=== PATIENT | female | born 1990 | race Caucasian/White ===

== ENCOUNTER 2018-06-18 01:00 | Inpatient (IN) | payer BC ==
[~2018-06-18] VITALS: Ht 157.5 cm; Wt 160.1 kg
[2018-06-18 02:40] VITALS: BP 121/56; PULSE 90; RESP 18; Ht 157.5 cm; Wt 160.1 kg
[2018-06-18] MEDS ORDERED: ONDANSETRON 4 MG INJ IV PRN (03:00)
--- NOTE | 2018-06-18 03:45 | TRIAGE ---
OB Triage Datetime Report Generated by CPN: 06/18/2018 03:45 Datetime: 06/18/2018 02:57 Time of Arrival: 06/18/2018 00:55 EGA: 30.3 Arrived By: Wheelchair Arrived From: Emergency Dept Chief Complaint: RUQ pain Movement: Present Contractions: Denies/Absent Rupture of Membranes: Denies Vaginal Bleeding: None Vaginal Discharge: Denies Recent Sexual Intercouse: Denies Abdominal Trauma: Not Applicable Patient Complaints: Nausea; Vomiting; Other Time Provider Notified: 06/18/2018 02:25 Provider Notified: YASHARPOUR Initial Plan: VS, EFM Datetime: 06/18/2018 02:04 Stage of : OB Triage Labor Evaluation Monitor Mode: External Resting Tone [place]: Relaxed Contraction Comments: none Heart Rate FHR Baseline Rate: 130 Monitor Mode: External US Variability: Moderate 6-25 bpm Accelerations: 15X15 Decelerations: None Category: Category I Pain Assessment Pain Scale: 8 Pain Presence: Intermittent Pain Type: Ache Pain Location: Abdomen Pain Relief Measures: Comfort Measures Datetime: 06/18/2018 01:30 Stage of : OB Triage Assessment Type: Triage Maternal Assessment Level of Consciousness: Fully Conscious DTR's/Clonus: DTRs 2+; No Clonus Headache: Denies Blurred Vision: No Respiratory Effort: Unlabored; Regular Rhythm; Equal Expansion Breath Sounds, Left: Clear and Equal Breath Sounds, Right: Clear and Equal Nausea/Vomiting: Denies RUQ Epigastric Pain: Denies Lower Extremities Edema: None Degree: None Upper Extremities Edema: None Degree: None Facial Edema: None Temperature Route: Oral Fall Risk Assessment History of Falling: (0) No Secondary Diagnosis: (0) No Ambulatory Aid: (0) Bedrest/Nurse Assist IV Therapy: (0) No Gait: (0) Normal/Bedrest/Immobile Mental Status: (0) Oriented to Own Ability Fall Score: 0 Fall Risk Score Definition: No Risk: No action required Pain Assessment Pain Scale: 8 Pain Presence: Constant Pain Type: Ache Pain Location: Abdomen Pain Relief Measures: Comfort Measures
[2018-06-18] MEDS: LACTATED RINGER'S 1,000 ML IV SCH ×2 (04:19→11:44)
[2018-06-18] MEDS ORDERED: morphine 2 MG INJ ONE (05:00)
[2018-06-18] MEDS ORDERED: morphine 4 MG/ML VIAL IV PRN (05:00)
--- NOTE | 2018-06-18 09:18 | HP ---
Date/Time of Note Date/Time of Note DATE: 06/18/18 TIME: 09:13 OB - History Hx of Present Free Text/Dictation 27 YO with morbid obesity (BMI 65) with IUP at 30.3 weeks. patient with known long h/o gall stones, reported to L&D due to RUQ pain and emesis. sono revealed gall stones and labs are normal. she feels better now and she desires to go home. she is aware of the low fat diet, but she is not compliant. she reports good movements, she denies LOF per vagina or vaginal bleeding or UCs. Care: Good Care Ultrasounds: Normal mid trimester US Obstetrical Complications: Other (morbid obesity (BMI 65)) Medical Complications: Other (morbid obesity (BMI 65)) Past Family/Social History * Past Medical, Surgical, Family and Obstetric Histories reviewed from chart. OB Admission Exam Vital Signs Vital Signs Vital Signs Date Temp Pulse Resp B/P (MAP) Pulse Ox O2 O2 Flow FiO2 Time Delivery Rate 06/18/18 98.6 90 18 121/56 Room Air 02:40 (77) Physical Exam HEENT: WNL Heart: Rhythm Normal Lungs: Clear, Equal Abdomen: Abnormal (morbid obesity (BMI 65), soft, gravid, not tender) Extremities: Normal Reflexes: Normal Last 72 hours Lab Results CBC & BMP 06/18/18 03:59 Liver Function Test 06/18/18 03:59 Alanine Aminotransferase (ALT/SGPT) 10 L Albumin 3.8 Alkaline Phosphatase 107 Aspartate Amino Transf (AST/SGOT) 14 L Direct Bilirubin 0.00 Total Protein 7.5 OB Assessment/Plan Other Assessment: IUP 30.3 weeks morbid obesity (BMI 65) Gall stones. she feels better now and desires to go home Plan: Other (discharge home with precautions) URBANO MELLO MD Jun 18, 2018 09:18
[2018-06-18] MEDS ORDERED: HYDROCODONE/APAP (10/325) TAB PO ONE (10:00)
== END 2018-06-18 11:58 | disposition home or self-care (01) | DRG 832 ==
LOC: OBT 01:00 → L-D 01:10 → OBT 02:25 → L-D 02:25
PROVIDERS: ADMIT Specialist; ATTEND Specialist
DX: O99.613 Diseases of the digestive system complicating pregnancy, third trimester (principal); Z68.44 Body mass index [BMI] 60.0-69.9, adult; Z3A.30 30 weeks gestation of pregnancy; K80.20 Calculus of gallbladder without cholecystitis without obstruction; O99.213 Obesity complicating pregnancy, third trimester; E66.01 Morbid (severe) obesity due to excess calories
CPT/HCPCS: 76705; 76817; 76818; 80076; 81001; 85025; G0463; J2270; J7120

== ENCOUNTER 2018-06-18 22:23 | Outpatient (CLI) | payer BC ==
[~2018-06-18] VITALS: Ht 157.5 cm; Wt 160.2 kg
[2018-06-19] MEDS ORDERED: morphine 4 MG/ML VIAL IV PRN
[2018-06-19] MEDS ORDERED: ONDANSETRON 4 MG INJ IV PRN
[2018-06-19 00:02] VITALS: BP 141/67; PULSE 96; RESP 18
[2018-06-19] MEDS ORDERED: morphine 10 MG INJ ONE (01:10)
[2018-06-19] MEDS ORDERED: LACTATED RINGER'S 1,000 ML IV ONE (01:30)
[2018-06-19] MEDS ORDERED: LACTATED RINGER'S 1,000 ML IV SCH (02:30)
--- NOTE | 2018-06-19 12:30 | PN ---
Triage Information Date/Time 06/19/1804/27/1218 Reason for visit: Abd/pelvic pain Weeks of Gestation 30w4d /Para Diabetes: none Hypertention: none Additional information known to have gall stones hospitalized for abdominal pain and discharged on 06/17/18 postprandial pain on RUQ with x2 vomiting Objective Vital Signs Date Temp Pulse Resp B/P (MAP) Pulse Ox O2 O2 Flow FiO2 Time Delivery Rate 06/19/18 98.0 96 18 141/67 Room Air 00:02 (91) Heart Rate: 140's Heart Rate Comments CAT I tracing Contractions: None Results/Medications Result Diagram: 06/19/18 0109 Results 24 hrs Laboratory Tests Test 06/19/18 01:09 White Blood Count 12.6 H Red Blood Count 3.53 L Hemoglobin 9.2 L Hematocrit 28.6 L Mean Corpuscular Volume 81.0 L Mean Corpuscular Hemoglobin 26.1 L Mean Corpuscular Hemoglobin Concent 32.2 Red Cell Distribution Width 14.6 H Platelet Count 339 Mean Platelet Volume 10.2 Immature Granulocytes % 0.600 H Neutrophils % 71.3 Lymphocytes % 21.8 Monocytes % 5.8 Eosinophils % 0.3 Basophils % 0.2 Nucleated Red Blood Cells % 0.0 Immature Granulocytes # 0.070 H Neutrophils # 9.0 H Lymphocytes # 2.8 Monocytes # 0.7 Eosinophils # 0.0 Basophils # 0.0 Nucleated Red Blood Cells # 0.0 Medications MS 4mg zofran 4mg Imaging Results BPP 8/ JENNIFER 12.11 Disposition: Discharge Assessment/Plan A IUP 30w4d Abdominal pain 2to cholelithiasis pain resolved P discharge home low fat diet RTH prn MONY KENNY MD Jun 19, 2018 12:29
== END 2018-06-19 04:30 | disposition home or self-care (01) ==
LOC: OBT 22:23 → L-D 22:24 → OBT 06-19 04:30
PROVIDERS: ATTEND Specialist
DX: O26.893 Other specified pregnancy related conditions, third trimester (principal); R10.9 Unspecified abdominal pain; O99.613 Diseases of the digestive system complicating pregnancy, third trimester; K80.20 Calculus of gallbladder without cholecystitis without obstruction; Z3A.30 30 weeks gestation of pregnancy
CPT/HCPCS: 76818; 85025; 96360; 96361; 96374; 96375; J2270; J2405; J7120; Z7500; G0463

== ENCOUNTER 2018-06-21 23:15 | Inpatient (IN) | payer BC ==
[~2018-06-21] VITALS: Ht 157.5 cm; Wt 157.5 kg
[2018-06-21] MEDS ORDERED: PREN-19 PO (23:48)
[2018-06-21 23:49] VITALS: BP 137/79; PULSE 90; RESP 18
[2018-06-22] MEDS ORDERED: morphine 4 MG/ML VIAL IV PRN ×2 (01:00→15:30)
[2018-06-22] MEDS ORDERED: AL HYDROX/MG HYDROX/SIMETH 30 ML CUP PO PRN (01:00)
[2018-06-22] MEDS ORDERED: LACTATED RINGER'S 1,000 ML IV ONE (01:00)
[2018-06-22] MEDS ORDERED: ACETAMINOPHEN 325 MG TAB PO PRN (01:00)
[2018-06-22] MEDS ORDERED: ONDANSETRON 4 MG INJ IV PRN (01:00)
--- NOTE | 2018-06-22 01:56 | TRIAGE ---
OB Triage Datetime Report Generated by CPN: 06/22/2018 01:55 Datetime: 06/22/2018 00:50 Stage of : OB Triage Monitor Mode: External Quality: Mild Pattern: Normal: <= 5 Contractions in 10 Minutes Resting Tone [place]: Relaxed Datetime: 06/21/2018 23:58 Labor Evaluation Frequency: 2-6 Monitor Mode: External Duration (sec)2399: 20-40 Quality: Mild Pattern: Normal: <= 5 Contractions in 10 Minutes Resting Tone [place]: Relaxed Contraction Comments: Pt denies feeling ucs Datetime: 06/21/2018 23:32 Stage of : OB Triage Maternal Assessment Level of Consciousness: Fully Conscious Headache: Denies Blurred Vision: No Respiratory Effort: Unlabored Nausea/Vomiting: Present Facial Edema: None Monitor Mode: External Resting Tone [place]: Relaxed Heart Rate FHR Baseline Rate: 150 Monitor Mode: External US Comments: Baby very difficult to monitor d/t pt BMI 63.5 and pannus Pain Assessment Pain Scale: 8 Pain Presence: Constant Pain Type: Stabbing; Pressure Pain Location: Abdomen Datetime: 06/21/2018 23:25 Time of Arrival: 06/21/2018 23:12 EGA: 31.0 Arrived By: Wheelchair Arrived From: Home Chief Complaint: L1 w/ hx gallstones c/o N/V x1 after eating and gallstone pain beg 1700. Movement: Present Contractions: Denies/Absent Rupture of Membranes: Denies Vaginal Bleeding: None Vaginal Discharge: Denies Recent Sexual Intercouse: Denies Abdominal Trauma: Not Applicable Patient Complaints: Nausea; Vomiting; Other Time Provider Notified: 06/22/2018 00:50 Provider Notified: Dr Rodriguez Initial Plan: EFM,UA Datetime: 06/19/2018 01:15 Stage of : OB Triage Pain Assessment Pain Scale: 10 Pain Presence: Constant Pain Type: Sharp; Stabbing; Pressure Pain Location: Abdomen Datetime: 06/19/2018 00:51 Comments: Unablt to monitor baby d/t pt BMI and pain Datetime: 06/18/2018 23:30 Stage of : OB Triage Monitor Mode: External Resting Tone [place]: Relaxed Datetime: 06/18/2018 23:00 Time of Arrival: 06/18/2018 22:17 EGA: 30.3 Arrived By: Wheelchair Arrived From: Home Chief Complaint: to unit by w/c c/o n/v and severe RUQ pain and states she knows it is her gal lstones as it started 2 hrs after eating Movement: Present Contractions: Denies/Absent Rupture of Membranes: Denies Vaginal Bleeding: None Vaginal Discharge: Denies Recent Sexual Intercouse: Denies Abdominal Trauma: Not Applicable Patient Complaints: Nausea; Vomiting; Other Time Provider Notified: 06/18/2018 23:40 Provider Notified: Dr Puckett Datetime: 06/18/2018 22:43 Stage of : OB Triage Maternal Assessment Level of Consciousness: Fully Conscious Headache: Denies Blurred Vision: No Respiratory Effort: Unlabored Nausea/Vomiting: Present RUQ Epigastric Pain: Denies Facial Edema: None Monitor Mode: External Resting Tone [place]: Relaxed Heart Rate FHR Baseline Rate: 150 Monitor Mode: External US Pain Assessment Pain Scale: 10 Pain Presence: Constant Pain Type: Sharp; Stabbing; Pressure Pain Location: Abdomen Datetime: 06/18/2018 11:43 Labor Evaluation Frequency: 0 Monitor Mode: Palpation Resting Tone [place]: Relaxed Heart Rate FHR Baseline Rate: 140 Monitor Mode: External US FHR Baseline Changes: No Baseline Change Variability: Moderate 6-25 bpm Accelerations: 10X10 Decelerations: None Category: Category I Pain Assessment Pain Scale: 0 Pain Presence: None/Denies Datetime: 06/18/2018 11:18 Pain Assessment Pain Scale: 6 Pain Presence: Intermittent Pain Type: Dull Pain Location: Abdomen Pain Relief Measures: Comfort Measures Datetime: 06/18/2018 11:01 Labor Evaluation Frequency: 0 Monitor Mode: Palpation Resting Tone [place]: Relaxed Heart Rate FHR Baseline Rate: 140 Monitor Mode: External US FHR Baseline Changes: No Baseline Change Decelerations: None Category: Category I Datetime: 06/18/2018 10:54 Pain Assessment Pain Scale: 0 Pain Presence: None/Denies Pain Relief Measures: Comfort Measures Datetime: 06/18/2018 10:13 Labor Evaluation Frequency: 0 Monitor Mode: External Contraction Comments: DENIES FEELING ANY UC'S Heart Rate FHR Baseline Rate: 140 Monitor Mode: External US FHR Baseline Changes: No Baseline Change Variability: Moderate 6-25 bpm Accelerations: 15X15 Decelerations: None Category: Category I Pain Presence: None/Denies Datetime: 06/18/2018 07:33 Assessment Type: Ongoing Assessment Maternal Assessment Level of Consciousness: Fully Conscious DTR's/Clonus: DTRs 2+; No Clonus Headache: Denies Blurred Vision: No Respiratory Effort: Unlabored; Regular Rhythm; Equal Expansion Breath Sounds, Left: Clear and Equal Breath Sounds, Right: Clear and Equal Nausea/Vomiting: Denies RUQ Epigastric Pain: Denies Facial Edema: None Temperature Route: Oral Fall Risk Assessment History of Falling: (0) No Secondary Diagnosis: (0) No Ambulatory Aid: (0) Bedrest/Nurse Assist IV Therapy: (0) No Gait: (0) Normal/Bedrest/Immobile Mental Status: (0) Oriented to Own Ability Fall Score: 0 Fall Risk Score Definition: No Risk: No action required Datetime: 06/18/2018 03:20 Stage of : Antepartum Assessment Type: Ongoing Assessment Maternal Assessment Level of Consciousness: Fully Conscious DTR's/Clonus: DTRs 2+; No Clonus Headache: Denies Blurred Vision: No Respiratory Effort: Unlabored; Regular Rhythm; Equal Expansion Breath Sounds, Left: Clear and Equal Breath Sounds, Right: Clear and Equal Nausea/Vomiting: Denies RUQ Epigastric Pain: Denies Lower Extremities Edema: None Degree: None Upper Extremities Edema: None Degree: None Facial Edema: None Temperature Route: Oral Fall Risk Assessment History of Falling: (0) No Secondary Diagnosis: (0) No Ambulatory Aid: (0) Bedrest/Nurse Assist IV Therapy: (0) No Gait: (0) Normal/Bedrest/Immobile Mental Status: (0) Oriented to Own Ability Fall Score: 0 Fall Risk Score Definition: No Risk: No action required Pain Assessment Pain Scale: 8 Pain Presence: Intermittent Pain Type: Sharp Pain Location: Right Flank Pain Goal: 3 Pain Relief Measures: Comfort Measures Datetime: 06/18/2018 02:57 EGA: 30.3 Datetime: 06/18/2018 01:30 Fall Score: 0 Fall Risk Score Definition: No Risk: No action required
[2018-06-22] MEDS ORDERED: morphine 10 MG INJ ONE (02:27)
--- NOTE | 2018-06-22 03:22 | HP ---
Date/Time of Note Date/Time of Note DATE: 06/22/18 TIME: 03:17 OB - History Hx of Present Free Text/Dictation Patient is a 27-year-old morbidly obese with BMI of 63.5 4 para 1 at 31 weeks of gestation with estimated date of delivery August 24, 2018 presents with chief complaint of abdominal pain and vomiting Patient is known to have gallstones. Initially diagnosed in 2014 She reports that she is unable to hold any food or fluids down She reports positive movement, denies any vaginal bleeding or leaking fluid She has occasional uterine contractions Past obstetrical history significant for x1 Estimated Due Date: Aug 24, 2018 : 4 Para: 1 Medical Complications: Other (Gallstones) Past Family/Social History * Past Medical, Surgical, Family and Obstetric Histories reviewed from chart. OB Admission Exam Vital Signs Vital Signs Vital Signs Date Temp Pulse Resp B/P (MAP) Pulse Ox O2 O2 Flow FiO2 Time Delivery Rate 06/21/18 97.9 90 18 137/79 Room Air 23:49 (98) Physical Exam HEENT: WNL Heart: Rhythm Normal Lungs: Clear, Equal Abdomen: WNL Extremities: Normal Reflexes: Normal Cervical Dilatation: None Membranes: Intact Heart Rate: 140's Accelerations: Accelerations Present Decelerations: No Decelerations Varibility: Moderate Contractions on Admission: 6-10 Minutes Apart Intensity: Mild Last 72 hourBlood Glucose PROCEDURE: Gallbladder ultrasound CLINICAL INDICATION: Abdominal pain. COMPARISON: Ultrasound 06/18/2018. TECHNIQUE: Multiple transverse and longitudinal sommer-scale images of the abdomen were obtained, supplemented with color, power, and spectral Doppler imaging with appropriate. FINDINGS: No sonographic Martinez's sign. No distension. No wall thickening. No pericholecystic fluid. Cholelithiasis Common bile duct: 4.0 mm. Visualized liver: Normal. Liver: Hepatomegaly (25 cm). Heterogeneous echogenicity on the basis of hepatic steatosis Pancreas: Unremarkable. Right Kidney: No hydronephrosis. IMPRESSION: 1. Cholelithiasis without wall thickening or surrounding fluid. 2. Hepatomegaly with hepatic steatosis. RPTAT: HRSR Roberty Redlich, Physician Date Time Electronically viewed and signed by Physician Jemma on 06/22/2018 02:39 RR/ CC: EDGAR ZAMORANO MD [id number] Ordering MD: EDGAR ZAMORANO MD Location: L-D Room/Bed: [facility] 2-A PROCEDURE: US OB. CLINICAL INDICATION: Pain. TECHNIQUE: Multiple sonographic images of the uterus were obtained. The images were reviewed on a PACS workstation. COMPARISON: US ABDOMEN 06/19/2018 FINDINGS: There is a single live intrauterine gestation. heart rate is 130 beats per minute. Measurements were made in order to determine age. The results are as follows: BPD = 8.07 cm. HC = 29.90 cm. AC = 28.76 cm. FL = 5.93 cm. Estimated weight is 1929 +/- 289 grams. LMP growth percentile is 78.8 %. Menstrual age by ultrasound dates is 32 weeks 2 days. The estimated date of delivery is 08/15/2018. Position is cephalic and placenta is posterior grade 1. There is no evidence for an abruption or placenta previa. IMPRESSION: 1. Single live intrauterine gestation of 32 weeks 2-day menstrual age by ultrasound dates. 2. The estimated date of delivery is 08/15/2018. RPTAT: HRSR Physician Jemma Date Time Electronically viewed and signed by Physician Jemma on 06/22/2018 02:46 RR/ CC: EDGAR ZAMORANO MD [id number] PROCEDURE: Biophysical profile. CLINICAL INDICATION: Pelvic pain. TECHNIQUE: Multiple sonographic images of the pelvis were obtained with transabdominal technique. Endovaginal evaluation of the cervix was also perfo rmed. COMPARISON: 06/19/2018. FINDINGS: There is a single living intrauterine gestation with the fetus in a vertex position. The placenta is posterior in location, grade 1. heart tones of 132 beats per minute are identified. There is normal amniotic fluid volume with an JENNIFER of 10.6 cm. The cervix is closed measuring 6.0 cm. breathing movements = 2 Gross body movements = 2 tone = 2 Qualitative AFV = 2 IMPRESSION: Biophysical profile 8 out of 8. .Daniel Giles MD, Date Time Electronically viewed and signed by .Daniel Giles MD, on 06/22/2018 02:41 .T/ CC: EDGAR ZAMORANO MD [id number] Last 72 hours Lab Results CBC & BMP 06/22/18 01:45 Liver Function Test 06/22/18 01:45 Alanine Aminotransferase (ALT/SGPT) 44 Albumin 3.7 Alkaline Phosphatase 154 H Aspartate Amino Transf (AST/SGOT) 34 Direct Bilirubin 0.00 Total Protein 7.4 OB Assessment/Plan Reason for admission: other (31 weeks of gestation with gallstones) Other plan: Admit to antepartum Urine culture to be sent IV fluid hydration Antiemetics and pain meds Antibiotics prophylaxis Betamethasone for lung maturity Both perinatology and medical consult EDGAR ZAMORANO MD Jun 22, 2018 03:22
[2018-06-22] MEDS ORDERED: BETAMET NA PHOS/AC(6 MG/ML) 2 ML INJ SYG IM ONE ×2 (03:30→19:00)
[2018-06-22] MEDS: LACTATED RINGER'S 1,000 ML IV SCH ×2 (04:31→12:32)
[2018-06-22] MEDS ORDERED: CEFAZOLIN 1 GM/50 ML (PMX) 50 ML IVPB SCH ×2 (06:00)
[2018-06-22] MEDS: CEFAZOLIN 1 GM/50 ML (PMX) 50 ML IVPB SCH ×2 (06:15→14:53)
--- NOTE | 2018-06-22 07:43 | HP ---
Date/Time of Note Date/Time of Note DATE: 06/22/18 TIME: 07:40 OB - History Hx of Present Free Text/Dictation Patient is a 27-year-old morbidly obese with BMI of 63.5 4 para 1 at 31 weeks of gestation with estimated date of delivery August 24, 2018 presents with chief complaint of abdominal pain and vomiting. no obstruction seen on sono. Care: Good Care Ultrasounds: Normal mid trimester US Obstetrical Complications: Other (morbid obesity) Medical Complications: Other (norbid obesity, gall stones) Past Family/Social History * Past Medical, Surgical, Family and Obstetric Histories reviewed from chart. OB Admission Exam Vital Signs Vital Signs Vital Signs Date Temp Pulse Resp B/P (MAP) Pulse Ox O2 O2 Flow FiO2 Time Delivery Rate 06/21/18 97.9 90 18 137/79 Room Air 23:49 (98) Physical Exam HEENT: WNL Heart: Rhythm Normal Lungs: Clear, Equal Abdomen: Abnormal (morbid obesity, soft, gravid) Extremities: Normal Reflexes: Normal Last 72 hours Lab Results CBC & BMP 06/22/18 01:45 Liver Function Test 06/22/18 01:45 Alanine Aminotransferase (ALT/SGPT) 44 Albumin 3.7 Alkaline Phosphatase 154 H Aspartate Amino Transf (AST/SGOT) 34 Direct Bilirubin 0.00 Total Protein 7.4 OB Assessment/Plan Other Assessment: IUP 31 weeks symptomatic gall stones morbid obesity h/o c/s Other plan: kaye consult Hospitalist consult IV hydration URBANO Mendez MD Jun 22, 2018 07:43
--- NOTE | 2018-06-22 08:55 | CONS ---
Date/Time of Note Date/Time of Note DATE: 06/22/18 TIME: 08:48 Assessment/Plan Assessment/Plan Hospital Course 1. Biliary colic -no concern for choledocholithiasis, unable to do HIDA scan 2/2 being pregn ant -we will likely just manage conservatively and plan for cholecystectomy after she delivers the baby -surgical consultation also obtained with Dr Moody 2. Fatty liver 3. 31 week gestation Dispo: Recommend bland diet with clears await surgery review and recommendations supportive care and pain control Thanks for the Consult. We will follow with you. Result Diagram: 06/22/18 0145 06/22/18 014 Results 24hrs Laboratory Tests Test 06/21/18 23:20 06/22/18 01:45 06/22/18 04:10 Urine Color CHRISTEN Urine Clarity SLIGHTLY CLOUDY A Urine pH 5.0 Urine Specific [place] 1.020 Urine Ketones 2+ H Urine Nitrite NEGATIVE Urine Bilirubin 1+ H Urine Urobilinogen 2+ H Urine Leukocyte Esterase NEGATIVE Urine Microscopic RBC 3 Urine Microscopic WBC 8 H Urine Squamous FEW Epithelial Cells Urine Bacteria MODERATE Urine Mucus FEW A Urine Hemoglobin NEGATIVE Urine Glucose NEGATIVE Urine Total Protein 1+ H White Blood Count 10.8 Red Blood Count 3.56 L Hemoglobin 9.1 L Hematocrit 28.6 L Mean Corpuscular Volume 80.3 L Mean Corpuscular Hemoglobin 25.6 L Mean Corpuscular 31.8 L Hemoglobin Concent Red Cell Distribution Width 14.6 H Platelet Count 339 Mean Platelet Volume 10.8 H Immature Granulocytes % 0.600 H Neutrophils % 66.4 Lymphocytes % 25.3 Monocytes % 7.2 Eosinophils % 0.3 Basophils % 0.2 Nucleated Red Blood Cells % 0.0 Immature Granulocytes # 0.060 H Neutrophils # 7.2 Lymphocytes # 2.7 Monocytes # 0.8 Eosinophils # 0.0 Basophils # 0.0 Nucleated Red Blood Cells # 0.0 Sodium Level 141 Potassium Level 3.6 Chloride Level 107 Carbon Dioxide Level 22 Anion Gap 12 Blood Urea Nitrogen 9 Creatinine 0.55 Est Glomerular Filtrat > 60 Rate mL/min Glucose Level 79 Calcium Level 9.6 Total Bilirubin 0.6 Direct Bilirubin 0.00 Indirect Bilirubin 0.6 Aspartate Amino 34 Transf (AST/SGOT) Alanine 44 Aminotransferase (ALT/SGPT) Alkaline Phosphatase 154 H Total Protein 7.4 Albumin 3.7 Globulin 3.70 H Albumin/Globulin Ratio 1.00 Amylase Level 65 Lipase 83 Consultation Date/Type/Reason Admit Date/Time Jun 22, 2018 at 00:50 Date of Consultation: Jun 22, 2018 Type of Consult Medical Hx of Present Illness Patient is a 27-year-old morbidly obese with BMI of 63.5 4 para 1 at 31 weeks of gestation with estimated date of delivery August 24, 2018 presents with chief complaint of abdominal pain and vomiting Patient is known to have gallstones. Initially diagnosed in 2014 She reports that she is unable to hold any food or fluids down Constitutional: No chills, No febrile Respiratory: No pain, No cough, No shortness of breath Cardiovascular: No lightheadedness, No palpitations Gastrointestinal: nausea, vomiting Genitourinary: No bleeding, No dysuria, No flank pain Skin: no complaints Neurologic: no complaints Past Medical History gallstones morbid obesity States she missed her appointment with the surgeon to get her GB taken out before she got . . Medications Current Medications Prenat Multivit/ [place]/Iron/Folic Ac () 1 tab DAILY PO ; Start 06/22/18 at 09:00 Acetaminophen (Tylenol Tab) 650 mg Q4H PRN PO MILD PAIN(1-3)OR ELEVATED TEMP; Start 06/22/18 at 01:00 Al Hydrox/Mg Hydrox/Simethicone (Mag-Al Plus) 30 ml Q6H PRN PO GASTROINTESTINAL UPSET; Start 06/22/18 at 01:00 Ondansetron HCl (Zofran Inj) 4 mg Q6H PRN IV NAUSEA AND/OR VOMITING Last administered on 06/22/18at 02:30; Admin Dose 4 MG; Start 06/22/18 at 01:00 Lactated Ringer's 1,000 ml @ 125 mls/hr Q8H IV Last administered on 06/22/18at 04:31; Admin Dose 125 MLS/HR; Start 06/22/18 at 01:00 Morphine Sulfate (morphine) 3 mg Q4H PRN IV SEVERE PAIN LEVEL 7-10 Last administered on 06/22/18at 02:34; Admin Dose 3 MG; Start 06/22/18 at 01:00 Cefazolin Sodium 50 ml @ 100 mls/hr Q8 IVPB Last administered on 06/22/18at 06:15; Admin Dose 100 MLS/HR; Start 06/22/18 at 03:54 Allergies: Coded Allergies: No Known Allergy (Unverified , 06/21/18) Past Surgical History c/section Family History Significant Family History: other (gallstones) Social History Alcohol Use: none Smoking Status: Never smoker Exam/Review of Systems Vital Signs Vitals Vital Signs Date Temp Pulse Resp B/P (MAP) Pulse Ox O2 O2 Flow FiO2 Time Delivery Rate 06/21/18 97.9 90 18 137/79 Room Air 23:49 (98) Intake and Output 06/21/18 06/21/18 06/22/18 1515:00 23:00 07:00 IntakeIntake Total 486 ml OutputOutput Total 150 ml BalanceBalance 336 ml Exam General: sleepy from meds? answering questions appropriately, mobidly obese HEENT: NC/ AT. PERRL. EOM intact Neck: supple CVS: S1, S2, RRR. no murmurs. no pain on chest wall palpation Lungs: CTA b/l. no wheezing or rhonchi Abd: soft, gravid. mildly tender RUQ, +BS Ext: moving all extremities skin: no rashes Medications Medications Current Medications Prenat Multivit/ [place]/Iron/Folic Ac () 1 tab DAILY PO ; Start 06/22/18 at 09:00 Acetaminophen (Tylenol Tab) 650 mg Q4H PRN PO MILD PAIN(1-3)OR ELEVATED TEMP; Start 06/22/18 at 01:00 Al Hydrox/Mg Hydrox/Simethicone (Mag-Al Plus) 30 ml Q6H PRN PO GASTROINTESTINAL UPSET; Start 06/22/18 at 01:00 Ondansetron HCl (Zofran Inj) 4 mg Q6H PRN IV NAUSEA AND/OR VOMITING Last administered on 06/22/18at 02:30; Admin Dose 4 MG; Start 06/22/18 at 01:00 Lactated Ringer's 1,000 ml @ 125 mls/hr Q8H IV Last administered on 06/22/18at 04:31; Admin Dose 125 MLS/HR; Start 06/22/18 at 01:00 Morphine Sulfate (morphine) 3 mg Q4H PRN IV SEVERE PAIN LEVEL 7-10 Last administered on 06/22/18at 02:34; Admin Dose 3 MG; Start 06/22/18 at 01:00 Cefazolin Sodium 50 ml @ 100 mls/hr Q8 IVPB Last administered on 06/22/18at 06:15; Admin Dose 100 MLS/HR; Start 06/22/18 at 03:54 Imaging Imaging PROCEDURE: Gallbladder ultrasound CLINICAL INDICATION: Abdominal pain. COMPARISON: Ultrasound 06/18/2018. TECHNIQUE: Multiple transverse and longitudinal sommer-scale images of the abdomen were obtained, supplemented with color, power, and spectral Doppler imaging with appropriate. FINDINGS: No sonographic Martinez's sign. No distension. No wall thickening. No pericholecystic fluid. Cholelithiasis Common bile duct: 4.0 mm. Visualized liver: Normal. Liver: Hepatomegaly (25 cm). Heterogeneous echogenicity on the basis of hepatic steatosis Pancreas: Unremarkable. Right Kidney: No hydronephrosis. IMPRESSION: 1. Cholelithiasis without wall thickening or surrounding fluid. 2. Hepatomegaly with hepatic steatosis. RPTAT: HRSR Physician Jemma Date Time Electronically viewed and signed by Jonel Ambrocio Physician on 06/22/2018 02:39 RR/ CC: EDGAR ZAMORANO MD, BOLAT[place]O M. Jun 22, 2018 08:55
[2018-06-22] MEDS ORDERED: PRENATAL VITAMIN PO SCH (09:00)
--- NOTE | 2018-06-22 12:08 | PERINOTE ---
Date/Time of Note Date/Time of Note DATE: 06/22/18 TIME: 11:42 Assessment/Recommendations Other Assessments 27 yo with IUP at 31w admitted for biliary colic. Patient unable to adhere to diet recommendations. Receiving steroid course. Recommendations: 1. Recommend hepatobiliary or general surgery consult 2. MRCP/ERCP can be performed in if necessary according to hepatobiliary or general surgery, however low suspicion for obstruction based on imaging and labs 3. Agree with plan for supportive care at this time 4. If recurrent bouts of biliary colic occur primary surgical management during is reasonable because recurrence is common. Patient reports previous admission for biliary colic, therefore surgical management may be considered. If surgical management is pursued, please re-consult for surgical recommendations regarding the monitoring and patient positioning. OB Subjective Free Text/Dictaton Perinatology consult requested for biliary colic. Patient is morbidly obese with a history of gallstones since 2014, with history of possible endoscopy vs. ERCP. Reports there was an obstruction that was released. Patient also reports she avoided cholecystectomy as she was using symptoms of pain to help her avoid a poor diet. Patient reports she has had pain for the last 2 weeks but noticed her urine was dark and decided to come to hospital at that time. Reports that she was eating chicken from a truck, expe rienced pain, and then had emesis. She reports that she usually has pain after meals and is able to keep food down for a period of time but then vomits to relieve the pain. She has had some episodes of diarrhea and chills, denies fevers. 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 PMH: gallstones PSH: CS, D&E Meds: PO progesterone (prescribed but not taken yet for history of miscarriage), PNV NKDA SH: denies T/A/D FH: non-contributory HD# 1 IUP @ 31w Complaints/Overnight events Patient receiving IVF and pain medication. Patient is able to tolerate PO. RUQ ultrasound showed gallstones. Current Medications Current Medications Prenat Multivit/ O'Brien/Iron/Folic Ac () 1 tab DAILY PO ; Start 06/22/18 at 09:00 Acetaminophen (Tylenol Tab) 650 mg Q4H PRN PO MILD PAIN(1-3)OR ELEVATED TEMP; Start 06/22/18 at 01:00 Al Hydrox/Mg Hydrox/Simethicone (Mag-Al Plus) 30 ml Q6H PRN PO GASTROINTESTINAL UPSET; Start 06/22/18 at 01:00 Ondansetron HCl (Zofran Inj) 4 mg Q6H PRN IV NAUSEA AND/OR VOMITING Last administered on 06/22/18at 02:30; Admin Dose 4 MG; Start 06/22/18 at 01:00 Lactated Ringer's 1,000 ml @ 125 mls/hr Q8H IV Last administered on 06/22/18at 04:31; Admin Dose 125 MLS/HR; Start 06/22/18 at 01:00 Morphine Sulfate (morphine) 3 mg Q4H PRN IV SEVERE PAIN LEVEL 7-10 Last administered on 06/22/18at 02:34; Admin Dose 3 MG; Start 06/22/18 at 01:00 Cefazolin Sodium 50 ml @ 100 mls/hr Q8 IVPB Last administered on 06/22/18at 06:15; Admin Dose 100 MLS/HR; Start 06/22/18 at 03:54 OB Admission Exam Physical Exam Vitals: Vital Signs Date Temp Pulse Resp B/P (MAP) Pulse Ox O2 O2 Flow FiO2 Time Delivery Rate 06/21/18 97.9 90 18 137/79 Room Air 23:49 (98) Abdomen: Abnormal Last 72 hours Lab Results CBC & BMP 06/22/18 01:45 Liver Function Test 06/22/18 01:45 Alanine Aminotransferase (ALT/SGPT) 44 Albumin 3.7 Alkaline Phosphatase 154 H Aspartate Amino Transf (AST/SGOT) 34 Direct Bilirubin 0.00 Total Protein 7.4 Ultrasound Results EFW FINDINGS: There is a single live intrauterine gestation. heart rate is 130 beats per minute. Measurements were made in order to determine age. The results are as follows: BPD = 8.07 cm. HC = 29.90 cm. AC = 28.76 cm. FL = 5.93 cm. Estimated weight is 1929 +/- 289 grams. LMP growth percentile is 78.8 %. Menstrual age by ultrasound dates is 32 weeks 2 days. The estimated date of delivery is 08/15/2018. Position is cephalic and placenta is posterior grade 1. There is no evidence for an abruption or placenta previa. IMPRESSION: 1. Single live intrauterine gestation of 32 weeks 2-day menstrual age by ultrasound dates. 2. The estimated date of delivery is 08/15/2018. JENNIFER FINDINGS: There is a single living intrauterine gestation with the fetus in a vertex position. The placenta is posterior in location, grade 1. heart tones of 132 beats per minute are identified. There is normal amniotic fluid volume with an JENNIFER of 10.6 cm. The cervix is closed measuring 6.0 cm. breathing movements = 2 Gross body movements = 2 tone = 2 Qualitative AFV = 2 IMPRESSION: Biophysical profile 8 out of 8. Ultrasound Comments: FINDINGS: No sonographic Martinez's sign. No distension. No wall thickening. No pericholecystic fluid. Cholelithiasis Common bile duct: 4.0 mm. Visualized liver: Normal. Liver: Hepatomegaly (25 cm). Heterogeneous echogenicity on the basis of hepatic steatosis Pancreas: Unremarkable. Right Kidney: No hydronephrosis. IMPRESSION: 1. Cholelithiasis without wall thickening or surrounding fluid. 2. Hepatomegaly with hepatic steatosis. FRANCESCO ROSEN MD Jun 22, 2018 11:53
[2018-06-22] MEDS ORDERED: morphine 10 MG INJ IV PRN ×2 (15:30→16:00)
--- NOTE | 2018-06-22 18:37 | DS ---
Date/Time of Note Date/Time of Note DATE: 06/22/18 TIME: 18:32 Discharge Summary Admission/Discharge Info Admit Date/Time Jun 22, 2018 at 00:50 Discharge Date/Time 06/22/2018 Discharge Diagnosis IUP 31 weeks Morbid obesity Symptomatic Gall Stones and Biliary colic pain H/O previous Patient Condition: Good Consults Hospitalist and Perinatologist Procedures Ultrasound Hx of Present Illness patient with long h/o gall stones with repeat visit to L&D due to biliary colic pain. Hospital Course patient with long h/o gall stones with repeat visit to L&D due to biliary colic pain. her pain resolved at this time. I offered to obtain general surgery consul tation, but she declines the option of surgical intervention. she reports good FM. She denies UC, LOF per vagina or vaginal bleeding. she would like to go home at his time. 2nd dose of BMZ will be given prior to discharge. Home Meds Reported Medications Vit #76/Iron,Carb/FA (Prenatabs Rx Tablet) 1 Each Tablet, 1 EACH PO DAILY, TAB 06/21/18 Follow-up Plan keep appt with your ob clinic Primary Care Provider Care Physician No Primary Time spent on discharge: > 30 minutes Pending Labs Laboratory Tests Test 06/21/18 23:20 06/22/18 01:45 06/22/18 04:10 Urine Color CHRISTEN (YELLOW) Urine Clarity SLIGHTLY CLOUDY (CLEAR) Urine pH 5.0 (5.0-9.0) Urine Specific 1.020 (1.003-1.030) [place] Urine Ketones 2+ mg/dL (NEGATIVE) Urine Nitrite NEGATIVE mg/dL (NEGATIVE) Urine Bilirubin 1+ mg/dL (NEGATIVE) Urine Urobilinogen 2+ mg/dL (NEGATIVE) Urine Leukocyte NEGATIVE Leroy/ul Esterase Urine Microscopic 3 /HPF (0-5) RBC Urine Microscopic 8 /HPF (0-5) WBC Urine Squamous FEW /HPF (FEW) Epithelial Cells Urine Bacteria MODERATE /HPF (NONE SEEN) Urine Mucus FEW /HPF (NONE SEEN) Urine Hemoglobin NEGATIVE mg/dL (NEGATIVE) Urine Glucose NEGATIVE mg/dL (NEGATIVE) Urine Total Protein 1+ mg/dl (NEGATIVE) White Blood Count 10.8 10^3/ul (4.8-10.8) Red Blood Count 3.56 10^6/ul (4.20-5.40) Hemoglobin 9.1 g/dl (12.0-16.0) Hematocrit 28.6 % (37.0-47.0) Mean Corpuscular 80.3 Volume fl (82.0-101.0) Mean Corpuscular 25.6 pg (29.0-33.0) Hemoglobin Mean Corpuscular 31.8 Hemoglobin Concent g/dl (32.0-37.0) Red Cell 14.6 % (11.5-14.5) Distribution Width Platelet Count 339 10^3/UL (140-415) Mean Platelet 10.8 fl (7.4-10.4) Volume Immature 0.600 Granulocytes % % (0.001-0.429) Neutrophils % 66.4 % (39.0-77.0) Lymphocytes % 25.3 % (15.0-51.0) Monocytes % 7.2 % (0.0-11.0) Eosinophils % 0.3 % (0.0-7.0) Basophils % 0.2 % (0.0-2.0) Nucleated Red Blood 0.0 Cells % /100WBC (0.0-0.0) Immature 0.060 Granulocytes # 10^3/ul (0.0-0.031) Neutrophils # 7.2 10^3/ul (1.6-7.5) Lymphocytes # 2.7 10^3/ul (0.8-2.9) Monocytes # 0.8 10^3/ul (0.3-0.9) Eosinophils # 0.0 10^3/ul (0.0-0.5) Basophils # 0.0 10^3/ul (0.0-0.1) Nucleated Red Blood 0.0 Cells # 10^3/ul (0.0-0.0) Sodium Level 141 mmol/L (135-144) Potassium Level 3.6 mmol/L (3.5-5.1) Chloride Level 107 mmol/L (97-110) Carbon Dioxide 22 mmol/L (21-31) Level Anion Gap 12 (5-13) Blood Urea Nitrogen 9 mg/dl (7-20) Creatinine 0.55 mg/dl (0.44-1.00) Est Glomerular > 60 mL/min (>60) Filtrat Rate mL/min Glucose Level 79 mg/dl (70-220) Calcium Level 9.6 mg/dl (8.4-10.2) Total Bilirubin 0.6 mg/dl (0.2-1.3) Direct Bilirubin 0.00 mg/dl (0.00-0.20) Indirect Bilirubin 0.6 mg/dl (0-1.1) Aspartate Amino 34 IU/L (15-46) Transf (AST/SGOT) Alanine 44 IU/L (13-69) Aminotransferase (AL T/SGPT) Alkaline 154 IU/L (42-121) Phosphatase Total Protein 7.4 g/dl (6.1-8.1) Albumin 3.7 g/dl (3.3-4.9) Globulin 3.70 g/dl (1.3-3.2) Albumin/Globulin 1.00 Ratio Amylase Level 65 U/L (11-123) Lipase 83 U/L (23-300) URBANO MELLO MD Jun 22, 2018 18:37
== END 2018-06-22 20:10 | disposition home or self-care (01) | DRG 833 ==
LOC: OBT 23:15 → L-D 23:15 → OBT 06-22 00:50
PROVIDERS: ADMIT Specialist; ATTEND Specialist
DX: O99.613 Diseases of the digestive system complicating pregnancy, third trimester (principal); K80.20 Calculus of gallbladder without cholecystitis without obstruction; Z3A.31 31 weeks gestation of pregnancy; O26.613 Liver and biliary tract disorders in pregnancy, third trimester; K76.0 Fatty (change of) liver, not elsewhere classified; R16.0 Hepatomegaly, not elsewhere classified; O99.213 Obesity complicating pregnancy, third trimester; E66.01 Morbid (severe) obesity due to excess calories
CPT/HCPCS: 36415; 76705; 76815; 76817; 76818; 80053; 81001; 82150; 83690; 85025; 87086; G0463; J0690; J0702; J2270; J2405; J7120